=== PATIENT | male | born 1985 | race Asian ===

== ENCOUNTER 2018-10-28 22:47 | Emergency (ER) | payer OTHER ==
[~2018-10-28] VITALS: Ht 162.6 cm; Wt 86.2 kg
[2018-10-28 23:05] VITALS: Ht 162.6 cm; Wt 86.2 kg
[2018-10-29 00:53] VITALS: BP 117/51
== END 2018-10-29 00:50 | disposition home or self-care (01) ==
LOC: ED 22:47
DX: A64 Unspecified sexually transmitted disease (principal); N48.89 Other specified disorders of penis
CPT/HCPCS: 87491; 87591; J0696